=== PATIENT | male | born 1980 | race Caucasian/White ===

== ENCOUNTER 2021-08-02 21:50 | Emergency (ER) | payer SELFPAY ==
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
--- NOTE | 2021-08-03 00:51 | PC.NURSE ---
[id number] arrived, had received at scene 1liter of NS, and 1unit PRBC. EMS gave 4 epi at scene. Ayketty on monitor
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
== END 2021-08-03 00:50 | disposition expired ==
PROVIDERS: Emergency Provider Internal Medicine Critical Care Medicine
DX: I46.9 Cardiac arrest, cause unspecified (principal)
CPT/HCPCS: 99282